=== PATIENT | female | born 1945 | race Caucasian/White ===

== ENCOUNTER 2017-02-01 09:42 | Emergency (ER) | payer MEDICARE, OTHER ==
[~2017-02-01] VITALS: Ht 157.5 cm; Wt 54.5 kg
[~2017-02-01 09:42] MED LIST: ADVIL200 MG PO; BORAGE OIL PO; CALCIUM 600 W/D1 TAB PO; CALCIUM WITH VI1 TAB PO; CLARITIN 1010 MG/TAB PO; DUO-KAPS1 CAP PO; FLONASE NASAL S16 GM NS; FOLIC ACID 40400 MCG PO; GRALISE300 MG PO; LEVAQUIN 5500 MG/TA1 PO; LEVAQUIN 750MG750 M1 PO; NO HOME MEDICATIONS; PERCOCET 325 MG1 TA2 PO; POTASSIUM GLUC550 MG PO; PREDNISONE20 MG PO; PROVENTIL0.09 MG/A1 IH; REQUIP0.25 MG PO; ROXICODONE 55 MG/TAB PO; VITAMIN A PO; VITAMIN E 400 U4001 PO
[2017-02-01 09:48] VITALS: BP 146/78; PULSE 87
[2017-02-01 09:58] VITALS: TEMP 97.6
[2017-02-01] MEDS ORDERED: NEURONTIN300 MG/CAP PO (10:03)
[2017-02-01] MEDS ORDERED: ZANTAC 150MG T150 MG PO (10:04)
[2017-02-01] MEDS ORDERED: PROCARDIA XL 3030 MG PO (10:04)
[2017-02-01] MEDS ORDERED: COLACE 100100 MG/CAP PO (10:04)
[2017-02-01] MEDS ORDERED: MIRALAX PA17 GM/Dose PO (10:05)
[2017-02-01] MEDS ORDERED: NORCO 325 MG-51 TAB PO (10:35)
[2017-02-01] MEDS ORDERED: MEDROL 4MG DOSPA4 MG PO (10:35)
[2017-02-25] MEDS ORDERED: NEURONTIN600 MG/TAB PO (08:29)
== END 2017-02-01 11:00 | disposition home or self-care (01) ==
LOC: COL.ER 09:42
DX: M54.16 Radiculopathy, lumbar region (principal); I10 Essential (primary) hypertension

== ENCOUNTER → 2017-02-27 | Outpatient (CLI) | payer MEDICARE, OTHER ==
[~2017-02-27] VITALS: Ht 157.5 cm; Wt 54.2 kg
[~2017-02-27] MED LIST changes: +COLACE 100100 MG/CAP PO; +MEDROL 4MG DOSPA4 MG PO; +MIRALAX PA17 GM/Dose PO; +NEURONTIN300 MG/CAP PO; +NEURONTIN600 MG/TAB PO; +NORCO 325 MG-51 TAB PO; +PROCARDIA XL 3030 MG PO; +ZANTAC 150MG T150 MG PO
[2017-02-27 12:02] VITALS: BP 103/64; PULSE 86
[2017-02-27 14:31] VITALS: BP 118/74; PULSE 83
== END ==
LOC: COL.RAD 11:37
DX: M48.07 Spinal stenosis, lumbosacral region (principal)
CPT/HCPCS: J3301

== ENCOUNTER → 2017-03-13 | Outpatient (CLI) | payer MEDICARE, OTHER | LOC: MC.RAD 10:00 | DX: Z12.31 Encounter for screening mammogram for malignant neoplasm of breast (principal) ==

== ENCOUNTER → 2017-03-13 | Outpatient (CLI) | payer MEDICARE, OTHER | LOC: MHCPAIN 11:16 | DX: G89.29 Other chronic pain (principal); M47.817 Spondylosis without myelopathy or radiculopathy, lumbosacral region; M54.16 Radiculopathy, lumbar region; M53.3 Sacrococcygeal disorders, not elsewhere classified; M96.1 Postlaminectomy syndrome, not elsewhere classified | CPT/HCPCS: G0463 ==

== ENCOUNTER → 2017-03-19 | Outpatient (CLI) | payer MEDICARE, OTHER | LOC: MHCPAIN 12:13 | DX: M47.817 Spondylosis without myelopathy or radiculopathy, lumbosacral region (principal); M96.1 Postlaminectomy syndrome, not elsewhere classified | CPT/HCPCS: J1100; Q9967 ==

== ENCOUNTER → 2017-04-03 | Outpatient (CLI) | payer MEDICARE, OTHER | LOC: MHCPAIN 12:34 | DX: G89.29 Other chronic pain (principal); M47.817 Spondylosis without myelopathy or radiculopathy, lumbosacral region; M54.16 Radiculopathy, lumbar region; M53.3 Sacrococcygeal disorders, not elsewhere classified; M96.1 Postlaminectomy syndrome, not elsewhere classified | CPT/HCPCS: G0463 ==

== ENCOUNTER → 2017-04-09 | Outpatient (CLI) | payer MEDICARE, OTHER | LOC: MHCPAIN 12:12 | DX: M47.27 Other spondylosis with radiculopathy, lumbosacral region (principal); M96.1 Postlaminectomy syndrome, not elsewhere classified; M48.07 Spinal stenosis, lumbosacral region | CPT/HCPCS: J1100; Q9967 ==

== ENCOUNTER → 2018-03-16 | Outpatient (CLI) | payer MEDICARE, OTHER | LOC: MHCPAIN 10:53 | DX: G89.29 Other chronic pain (principal); M47.817 Spondylosis without myelopathy or radiculopathy, lumbosacral region; M54.16 Radiculopathy, lumbar region; M53.3 Sacrococcygeal disorders, not elsewhere classified; M96.1 Postlaminectomy syndrome, not elsewhere classified | CPT/HCPCS: G0463 ==

== ENCOUNTER → 2018-03-25 | Outpatient (CLI) | payer MEDICARE, OTHER | LOC: MHCPAIN 11:06 | DX: M47.817 Spondylosis without myelopathy or radiculopathy, lumbosacral region (principal); M96.1 Postlaminectomy syndrome, not elsewhere classified | CPT/HCPCS: J1040; Q9967 ==

== ENCOUNTER 2018-04-29 16:30 | Outpatient (RCR) | payer MEDICARE, OTHER | END 2018-05-05 10:36 | disposition home or self-care (01) | LOC: WSPT 16:30 | DX: M51.37 Other intervertebral disc degeneration, lumbosacral region (principal); M48.07 Spinal stenosis, lumbosacral region; M54.31 Sciatica, right side; M54.16 Radiculopathy, lumbar region; Z98.890 Other specified postprocedural states | CPT/HCPCS: G8981-GP; G8982-GP ==

== ENCOUNTER 2019-10-25 09:41 | Emergency (ER) | payer MEDICARE, OTHER ==
[~2019-10-25] VITALS: Ht 157.5 cm; Wt 50.5 kg
[2019-10-25 09:48] VITALS: TEMP 98.9
[2019-10-25] MEDS ORDERED: NITRO-BID22 TOP (10:03)
[2019-10-25] MEDS ORDERED: PERCOCET 325 MG1 TA2 PO (10:03)
[2019-10-25 10:36] LABS: INR 1.1 (0.8-3.0); PROTHROMBIN TIME 12.6 SECONDS (9.7-12.8)
[2019-10-25 10:40] LABS: BASO % 0.3 % (0.0-2.0); EOS # 0.1 (0.0-0.7); EOS % 0.5 % (0-4.0); GRAN # 7.2 (1.4-6.5); GRAN % 76.1 % (42.2-75.2); HEMATOCRIT 37.1 % (37.0-47.0); HEMOGLOBIN 12.2 g/dl (12.5-16.0); LYMPH # 1.2 (1.2-3.4); LYMPH % 12.9 % (20.0-51.0); MEAN CELL VOLUME 96 fl (80.0-100.0); MEAN CORPUSCULAR HEMOGLOBIN 32 pg (27.0-31.0); MEAN CORPUSCULAR HGB CONC 33 g/dl (33.0-37.0); MEAN PLATELET VOLUME 10.1 fl (7.4-10.4); MONO # 0.9 (0.1-0.6); MONO % 9.9 % (1.7-9.3); PLATELET COUNT 194 K/mm3 (130-400); RED BLOOD COUNT 3.87 M/mm3 (4.10-5.30); REDCELL DISTRIBUTION WIDTH-CV 13.5 % (11.5-14.5)
[2019-10-25 10:41] LABS: ALANINE AMINOTRANSFERASE 20 U/L (9-52); ALBUMIN 4.5 gm/dL (3.5-5.0); ALKALINE PHOSPHATASE 52 U/L (50-136); ANION GAP 11 mmol/L (7-16); AST,SGOT 26 U/L (15-37); BILIRUBIN,TOTAL 0.5 mg/dL (0.0-1.0); BLOOD UREA NITROGEN 12 mg/dL (7-17); CALCIUM 9.3 mg/dL (8.4-10.2); CARBON DIOXIDE 25 mmol/L (22-30); CHLORIDE 100 mmol/L (98-107); CREATININE, serum 0.63 (0.52-1.25); GLUCOSE 125 mg/dL (74-106); LIPASE 23 U/L (23-300); POTASSIUM 4.1 mmol/L (3.4-5.0); SODIUM 136 mmol/L (137-145); TOTAL PROTEIN 7.3 gm/dL (6.4-8.2)
[2019-10-25 11:00] LABS: TROPONIN-I < 0.012 ng/mL (0.000-0.035)
[2019-10-25] MEDS ORDERED: OMNICEF 300MG300 MG PO (12:05)
[2019-10-25] MEDS ORDERED: ZITHROMAX Z PA250 MG PO (12:05)
[2019-10-25 15:05] VITALS: BP 112/87; PULSE 82
== END 2019-10-25 15:07 | disposition home or self-care (01) ==
LOC: COL.ER 09:41
PROVIDERS: Emergency Medicine
DX: J18.9 Pneumonia, unspecified organism (principal)
CPT/HCPCS: A4216; J0696; J2270; J7030; Q9967

== ENCOUNTER → 2021-04-23 | Outpatient (CLI) | payer MEDICARE, OTHER ==
[~2021-04-23] MED LIST changes: +NITRO-BID22 TOP; +OMNICEF 300MG300 MG PO; +ZITHROMAX Z PA250 MG PO
== END ==
LOC: MHCPAIN 13:59
DX: M47.817 Spondylosis without myelopathy or radiculopathy, lumbosacral region (principal); M96.1 Postlaminectomy syndrome, not elsewhere classified; M54.16 Radiculopathy, lumbar region; M53.3 Sacrococcygeal disorders, not elsewhere classified
CPT/HCPCS: G0463

== ENCOUNTER → 2021-04-25 | Outpatient (CLI) | payer MEDICARE, OTHER | LOC: MHCPAIN 10:03 | DX: M47.817 Spondylosis without myelopathy or radiculopathy, lumbosacral region (principal); M53.3 Sacrococcygeal disorders, not elsewhere classified; M54.16 Radiculopathy, lumbar region | CPT/HCPCS: J1100; Q9967 ==

== ENCOUNTER 2021-11-01 07:58 | Day surgery (SDC) | payer MEDICARE, OTHER ==
[~2021-11-01] VITALS: Ht 157.5 cm; Wt 51.4 kg
[2021-11-01] MEDS ORDERED: PROAIR HFA0.09 MG/AC IH (08:21)
[2021-11-01] MEDS ORDERED: CALTRATE 600 +1 TAB PO (08:22)
[2021-11-01] MEDS ORDERED: FOLIC ACID 11 MG/TA1 PO (08:23)
[2021-11-01] MEDS ORDERED: CVS SPECTRAVIT1 EA15 PO (08:23)
[2021-11-01] MEDS ORDERED: NORCO 325 MG-51 TAB PO (08:23)
[2021-11-01 08:49] VITALS: BP 110/60; PULSE 79; TEMP 97.3
[2021-11-01 09:40] VITALS: BP 103/57; PULSE 90; TEMP 97.4
--- NOTE | 2021-11-01 09:40 | NUR ---
The patient arrived on a cart from the procedure room alert and oriented x3. Vitals obtained. The patient has a pronounced dry cough that "comes and goes". The patient requested hot coffee and a box of tissues. Call madison is within reach at bedside. Side rails x1.
[2021-11-01 09:55] VITALS: BP 102/54; PULSE 91
--- NOTE | 2021-11-01 09:55 | NUR ---
The patient is tolerating her hot coffee well and requested a warm muffin. Denies nausea. No vomiting. Vitals obtained. Call madison remains within reach.
[2021-11-01 10:10] VITALS: BP 105/66; PULSE 92
--- NOTE | 2021-11-01 10:10 | NUR ---
Vitals obtained. IV discontinued. Catheter tip intact. Pressure bandage applied. No swelling or redness noted. DC instructions and educational material was reviewed with the patient, who verbalized understanding and signed the related paperwork. The patient was assisted to bedside, where she stood without difficulty and denied needing assistance changing. Call madison is within reach if needed. Her friend and ride home, Tamiko was contact.
--- NOTE | 2021-11-01 10:30 | NUR ---
The patient was escorted out via wheelchair to the patient entrence by AMMY Busby. The patient has her DC packet and personal belongings in the white patient belongings bag. The patient denied having any further questions or concerns and was transferred into her friend Tamiko, who is present to drive.
[2021-11-01 17:21] VITALS: BP 115/58; PULSE 86
== END 2021-11-01 10:30 | disposition home or self-care (01) ==
LOC: SDCO 07:58
DX: R05.3 Chronic cough (principal); J98.4 Other disorders of lung; J47.9 Bronchiectasis, uncomplicated; Z86.19 Personal history of other infectious and parasitic diseases; Z87.891 Personal history of nicotine dependence
CPT/HCPCS: J2704; J7120

== ENCOUNTER 2021-11-22 20:07 | Inpatient (IN) | payer MEDICARE, OTHER ==
[~2021-11-22] VITALS: Ht 154.9 cm; Wt 52.2 kg
[~2021-11-22 20:07] MED LIST changes: +CALTRATE 600 +1 TAB PO; +CVS SPECTRAVIT1 EA15 PO; +FOLIC ACID 11 MG/TA1 PO; +PROAIR HFA0.09 MG/AC IH
[2021-11-22] MEDS ORDERED: DIFLUCAN 100MG100 MG PO (20:50)
[2021-11-22 21:23] LABS: BASO % 0.2 % (0.0-2.0); EOS % 0.1 % (0.0-4.0); GRAN # 12.3 K/mm3 (1.4-6.5); GRAN % 81.3 % (42.2-75.2); HEMOGLOBIN 10.5 g/dl (12.5-16.0); LYMPH # 1.7 K/mm3 (1.2-3.4); LYMPH % 11.3 % (20.0-51.0); MEAN CELL VOLUME 92 fl (80.0-100.0); MEAN CORPUSCULAR HEMOGLOBIN 30 pg (27-31); MEAN CORPUSCULAR HGB CONC 33 g/dl (33.0-37.0); MEAN PLATELET VOLUME 9.5 fl (7.4-10.4); MONO % 6.6 % (1.7-9.3); PLATELET COUNT 224 K/mm3 (130-400); RED BLOOD COUNT 3.49 M/mm3 (4.10-5.30); REDCELL DISTRIBUTION WIDTH-CV 13.7 % (11.5-14.5)
[2021-11-22 21:29] LABS: HEMATOCRIT 32.1 % (37.0-47.0)
[2021-11-22 21:36] LABS: ALBUMIN 3.5 gm/dL (3.4-4.8); BILIRUBIN,TOTAL 0.6 mg/dL (0.2-1.2); C-REACTIVE PROTEIN 18.89 mg/dL (0.00-0.50); CALCIUM 9.2 mg/dL (8.4-10.2); CREATININE, serum 0.8 mg/dL (0.57-1.11); POTASSIUM 4.6 mmol/L (3.5-4.5); TOTAL PROTEIN 7.2 gm/dL (6.2-8.1)
[2021-11-22 21:42] LABS: TROPONIN-I 0.012 ng/mL (0.00-0.033)
[2021-11-23] VITALS (7 sets, daily range): BP systolic 102–139; BP diastolic 46–61; PULSE 65–89; TEMP 97.9–99.1
--- NOTE | 2021-11-23 00:49 | NUR ---
PT ARRIVES TO MEDICAL FLOOR AT 0000 THIS SHIFT TO ROOM 357, PT ABLE TO AMBULATE TO BED FROM WHEELCHAIR BY SBA, PT A/OX4, 02 ROOM AIR, PT REPORTS GENERALIZED PAIN 4/10, PT REPORTS SOA WITH AMBULATION. PT INSTRUCTED TO USE CALL LIGHT TO AMBULATE. VSS. LUNGS AUSCULATED, R LOBES DIMINISHED, ASSESMENT COMPLETE. MED REC COMPLETE. POC D/W PT. PT VERBALIZES UNDERSTANDING. PT ORIENTED TO FLOOR AND HOSPITAL POLICY. PT VERBALIZES UNDERSTANDING. PT [place] HANDED TO FLASK FITTER TO PLACE IN MEDICATION ROOM. ALL NEEDS MET AT THIS TIME. CALL LIGHT WITHIN REACH.
--- NOTE | 2021-11-23 05:59 | NUR ---
PT HAD UNEVENTFUL NIGHT THIS SHIFT, ALL MEDICAITONS ADMINISTERED ORDERED, PT COUGH REMAINS, NO PRODUCTION OF YET. CALL LIGHT WITHIN REACH. DROPLET/AIRBORNE PRECAUTIONS IN PLACE.
--- NOTE | 2021-11-23 10:10 | NUR ---
PT ASSESSED. NO COMPLAINTS OF PAIN OR DYSPNEA. NO SIGNS OR SYMPTOMS OF DISTRESS. IV TO LFA BELLA WITH INFUSION AND IS REMOVED. NEW IV PLACED IN RW CURRENTLY INFUSING WITHOUT COMPLICATION. NO OTHER CONCERNS AT THIS TIME. CALL LIGHT WITHIN REACH
--- NOTE | 2021-11-23 12:57 | NUR ---
Chaplain saavedra and offered support with patient.
--- NOTE | 2021-11-23 21:22 | NUR ---
TX GIVEN VIA MOUTHPIECE, TOLERATED WELL.
[2021-11-24 03:36] VITALS: BP 113/63; PULSE 83; TEMP 98.4
[2021-11-24 06:44] LABS: BASO % 0.1 % (0.0-2.0); EOS % 0.3 % (0.0-4.0); GRAN # 10.6 K/mm3 (1.4-6.5); GRAN % 70.6 % (42.2-75.2); HEMOGLOBIN 10.3 g/dl (12.5-16.0); LYMPH # 3.1 K/mm3 (1.2-3.4); MEAN CELL VOLUME 92 fl (80.0-100.0); MEAN CORPUSCULAR HEMOGLOBIN 30 pg (27-31); MEAN CORPUSCULAR HGB CONC 33 g/dl (33.0-37.0); MEAN PLATELET VOLUME 10.2 fl (7.4-10.4); MONO # 1.1 K/mm3 (0.1-0.6); MONO % 7.5 % (1.7-9.3); PLATELET COUNT 231 K/mm3 (130-400); RED BLOOD COUNT 3.41 M/mm3 (4.10-5.30); REDCELL DISTRIBUTION WIDTH-CV 13.5 % (11.5-14.5)
[2021-11-24 06:45] LABS: HEMATOCRIT 31.4 % (37.0-47.0)
[2021-11-24 07:02] LABS: CALCIUM 8.8 mg/dL (8.4-10.2); CREATININE, serum 0.7 mg/dL (0.57-1.11); POTASSIUM 3.9 mmol/L (3.5-4.5)
[2021-11-24 08:19] VITALS: BP 123/58; PULSE 95; TEMP 97.8
[2021-11-24] MEDS ORDERED: CEFTIN500 MG PO (09:43)
[2021-11-24] MEDS ORDERED: DOXYCYCLINE HY100 MG PO (09:44)
--- NOTE | 2021-11-24 11:34 | NUR ---
Scheduled medications given. Shift assessment performed. Patients states that she has mild pain on her left side from coughing, but denies the need for any interventions at this time. VSS. Patient A&O. Dyspnea upon exertion noted. Patient denies any further pain, discomfort, SOA, or needs at this time. Call light in reach.
[2021-11-24 12:23] VITALS: BP 113/56; PULSE 77; TEMP 98.3
--- NOTE | 2021-11-24 12:57 | NUR ---
SW called daughter Chrissie Marcelo to complete intake. [phone]. Daughter states that patient lives in [facility] alone. Does not utilize DME, is independent with ADLs and does not utilize HH services. PCP is Dr. Pop, and pharmacy is [facility] in [place]. DC plan is to return to home. Daughter states that she has been appointed as DPOA/HC. SW will continue to follow. DC plan: home
[2021-11-24] MEDS ORDERED: PREDNISONE20 MG PO (13:11)
--- NOTE | 2021-11-24 15:30 | NUR ---
Patient deemed fit for discharge. IV DC'd, catheter intact, no signs of phlebitis. Discharge education/instructions given. VSS. Patient A&O. Patient escorted from building via by wheelchair by [facility]. Daughter transporting home.
== END 2021-11-24 15:30 | disposition home or self-care (01) | DRG 194 ==
LOC: COL.ER 20:07 → MEDICAL 21:55
PROVIDERS: Emergency Medicine; Physician Assistant; ADMIT Internal Medicine
DX: J12.2 Parainfluenza virus pneumonia (principal); J47.0 Bronchiectasis with acute lower respiratory infection; E87.1 Hypo-osmolality and hyponatremia; E87.2 Acidosis; D64.9 Anemia, unspecified; E87.5 Hyperkalemia; R73.9 Hyperglycemia, unspecified; G89.29 Other chronic pain; M54.9 Dorsalgia, unspecified; I73.00 Raynaud's syndrome without gangrene; Z20.822 Contact with and (suspected) exposure to COVID-19
CPT/HCPCS: 99222-AI; 99232-AI; 99239; J0692; J1650; J2920; J7512

== ENCOUNTER → 2022-10-13 | Outpatient (CLI) | payer MEDICARE, OTHER ==
[~2022-10-13] MED LIST changes: +CEFTIN500 MG PO; +DIFLUCAN 100MG100 MG PO; +DOXYCYCLINE HY100 MG PO
== END ==
LOC: COL.RAD 09:45
DX: M15.9 Polyosteoarthritis, unspecified (principal)
CPT/HCPCS: J3301; Q9967

== ENCOUNTER → 2024-04-22 | Outpatient (CLI) | payer MEDICARE, OTHER ==
[~2024-04-22] MED LIST changes: +Iohexol 300 - 10 ML VIAL IV ONE; +Triamcinolone 40 MG/ML 1 ML VIAL IJ ONE
== END ==
LOC: COL.RAD 07:54
DX: M15.9 Polyosteoarthritis, unspecified (principal)
CPT/HCPCS: J0665; J3301; Q9967